=== PATIENT | female | born 1935 | race Caucasian/White ===

== ENCOUNTER 2023-10-19 13:18 | Emergency (ER) | payer MEDICARE, BC ==
[~2023-10-19] VITALS: Ht 152.4 cm; Wt 49.9 kg
[2023-10-19] MEDS ORDERED: ONDANSETRON HCL/PF 4 MG/2 ML VIAL IVP ONE (13:30)
[2023-10-19] MEDS ORDERED: MORPHINE SULFATE INJ 2 MG/ML DISP.SYRIN IV ONE (13:30)
[2023-10-19 13:49] LABS: BASOPHILS # (AUTO) 0.1 K/uL (0.0-0.2); BASOPHILS % (AUTO) 0.6 % (0.0-2.0); EOSINOPHILS % (AUTO) 0.2 % (0.0-6.0); HEMATOCRIT 33 % (33-45); HEMOGLOBIN 10.6 g/dL (11.5-14.8); LYMPHOCYTES # (AUTO) 0.4 K/uL (0.8-4.8); LYMPHOCYTES % (AUTO) 3.6 % (20.0-44.0); MEAN CORPUSCULAR HEMOGLOBIN 33 PG (26.0-33.0); MEAN CORPUSCULAR HGB CONC 33 g/dl (31.0-36.0); MEAN CORPUSCULAR VOLUME 101 fL (82-100); MONOCYTES # (AUTO) 0.7 K/uL (0.1-1.30); MONOCYTES % (AUTO) 6.2 % (2.0-12.0); NEUTROPHILS # (AUTO) 9.5 K/uL (1.8-8.9); NEUTROPHILS % (AUTO) 89.4 % (43.0-81.0); PLATELET COUNT (AUTO) 386 K/uL (150-450); RED BLOOD CELL COUNT(AUTO) 3.23 MIL/uL (4.0-5.2); RED CELL DISTRIBUTION WIDTH 14.8 % (11.5-15.0); WHITE BLOOD COUNT (AUTO) 10.6 K/uL (4.3-11.0)
[2023-10-19 14:04] LABS: ALANINE AMINOTRANSFERASE 25 U/L (12-78); ALBUMIN 3.1 g/dL (3.4-5.0); ALKALINE PHOSPHATASE 86 U/L (46-116); ASPARTATE AMINOTRANSFERASE 40 U/L (15-37); BILIRUBIN,DIRECT 0.2 mg/dL (0.0-0.2); BILIRUBIN,TOTAL 0.6 mg/dL (0.2-1.0); CALCIUM, SERUM 8.7 mg/dL (8.5-10.1); CARBON DIOXIDE 21 mmol/L (21-32); CHLORIDE 102 mmol/L (98-107); CREATININE 1.9 mg/dL (0.6-1.3); GLUCOSE 96 mg/dL (74-106); LIPASE 40 U/L (16-77); POTASSIUM 4.4 mmol/L (3.5-5.1); SODIUM SERUM 136 mmol/L (136-145); TOTAL PROTEIN, SERUM 6.5 g/dL (6.4-8.2); UREA NITROGEN, BLOOD 38 mg/dL (7-18)
[2023-10-19 14:06] LABS: INR 0.97 (0.91-1.10); PARTIAL THROMBOPLASTIN TIME 28.6 SEC (24.3-34.3); PROTHROMBIN TIME 10.3 SECS (9.2-11.1)
[2023-10-19] MEDS ORDERED: TRAM50TA2 PO ×2 (14:08)
[2023-10-19] MEDS ORDERED: PRED2.5T PO (14:08)
[2023-10-19] MEDS ORDERED: DULO60CA45 PO (14:08)
[2023-10-19] MEDS ORDERED: ESTR0.623 PO (14:08)
[2023-10-19] MEDS ORDERED: ASCO-495 PO (14:08)
[2023-10-19] MEDS ORDERED: ALEN70TA3 PO (14:08)
[2023-10-19] MEDS ORDERED: SIMV-46 PO (14:08)
[2023-10-19] MEDS ORDERED: LEFL20TA PO (14:08)
[2023-10-19] MEDS ORDERED: LACT10SO3 PO (14:08)
[2023-10-19] MEDS ORDERED: LIDO30AD10 TP (14:08)
[2023-10-19] MEDS ORDERED: MIRT-90 PO (14:08)
[2023-10-19] MEDS ORDERED: FURO-144 PO (14:08)
[2023-10-19] MEDS ORDERED: LISI40TA13 PO (14:08)
[2023-10-19] MEDS ORDERED: SULF500T PO (14:08)
[2023-10-19] MEDS ORDERED: IPRA42SP (14:08)
[2023-10-19] MEDS ORDERED: PANT40TA2 PO (14:08)
[2023-10-19] MEDS ORDERED: ACET-2605 PO (14:08)
[2023-10-19] MEDS ORDERED: ONDANSETRON HCL/PF 4 MG/2 ML VIAL ONE (14:54)
[2023-10-19] MEDS ORDERED: MORPHINE SULFATE INJ 2 MG/ML DISP.SYRIN ONE (14:54)
[2023-10-19] MEDS ORDERED: ACETAMINOPHEN ES 500 MG TABLET ONE (15:33)
[2023-10-19] MEDS ORDERED: PIPERACILLIN /TAZOBACTAM 3.375 G in IV D5W 50 ML IV ONE (16:00)
[2023-10-19] MEDS ORDERED: ACETAMINOPHEN ES 500 MG TABLET PO ONE (16:00)
[2023-10-19] MEDS ORDERED: PIPERACI/TAZO 3.375GM/D5W 50ML PB IV ONE (16:01)
[2023-10-19] MEDS ORDERED: ACETAMINOPHEN 325 MG TABLET PO PRN (16:30)
[2023-10-19] MEDS ORDERED: Z GUARD REMEDY 4 OZ OINT TP PRN (16:30)
[2023-10-19] MEDS ORDERED: ALENDRONATE 70 MG TABLET PO SCH (16:30)
[2023-10-19] MEDS ORDERED: MAGNESIUM HYDROXIDE 30 ML UDC PO PRN (16:30)
[2023-10-19] MEDS ORDERED: ESTROGENS,CONJUGATED 0.625 MG TABLET PO SCH (16:30)
[2023-10-19] MEDS ORDERED: IV NS 0.9% 1,000 ML IV PRN (16:30)
[2023-10-19] MEDS ORDERED: ZOLPIDEM TARTRATE 5 MG TABLET PO PRN (16:30)
[2023-10-19] MEDS ORDERED: MORPHINE SULFATE INJ 2 MG/ML DISP.SYRIN IV PRN (16:30)
[2023-10-19] MEDS ORDERED: MAG HYDROX/AL HYDROX/SIMETH 30 ML UDC PO PRN (16:30)
[2023-10-19] MEDS ORDERED: ONDANSETRON HCL/PF 4 MG/2 ML VIAL IVP PRN (16:30)
[2023-10-19] MEDS ORDERED: SULF1TAB48 PO (16:55)
[2023-10-19] MEDS ORDERED: LACTULOSE 10 G/15 ML UDC (PYXIS) PO SCH (17:00)
[2023-10-19] MEDS ORDERED: SULFASALAZINE 500 MG TABLET PO SCH (17:00)
[2023-10-19] MEDS ORDERED: TRAMADOL HCL 50 MG TABLET PO SCH (17:00)
[2023-10-19] MEDS ORDERED: MIRTAZAPINE 15 MG TABLET PO SCH (18:00)
[2023-10-19] MEDS ORDERED: PANTOPRAZOLE 40 MG TABLET.DR PO SCH (18:00)
[2023-10-19] MEDS ORDERED: PIPERACILLIN /TAZOBACTAM 3.375 G in IV D5W 50 ML IV SCH (18:00)
[2023-10-19] MEDS ORDERED: SIMVASTATIN 20 MG TABLET PO SCH (18:00)
[2023-10-19 18:18] VITALS: BP 123/68; TEMP 98; O2SAT 97
[2023-10-20] MEDS ORDERED: ASCORBIC ACID 250 MG TABLET PO SCH (09:00)
[2023-10-20] MEDS ORDERED: predniSONE 5 MG TABLET PO SCH (09:00)
[2023-10-20] MEDS ORDERED: LIDOCAINE 5% (PATCH) 1 EA PATCH TP SCH (09:00)
[2023-10-20] MEDS ORDERED: ACETAMINOPHEN ES 500 MG TABLET PO SCH (09:00)
[2023-10-20] MEDS ORDERED: LEFLUNOMIDE 20 MG TABLET PO SCH (09:00)
[2023-10-20] MEDS ORDERED: IPRATROPIUM BROMIDE 0.06% 15 ML NASPR NS SCH (09:00)
[2023-10-20] MEDS ORDERED: DULOXETINE HCL 30 MG CAPSULE.DR PO SCH (09:00)
[2023-10-20] MEDS ORDERED: PANTOPRAZOLE 40 MG VIAL IV SCH (09:00)
[2023-10-20] MEDS ORDERED: LISINOPRIL (20MG) 20 MG TABLET PO SCH (09:00)
== END 2023-10-19 18:19 ==
LOC: ER 13:20
DX: L02.214 Cutaneous abscess of groin (principal); K52.9 Noninfective gastroenteritis and colitis, unspecified; I10 Essential (primary) hypertension; E78.5 Hyperlipidemia, unspecified; Z79.899 Other long term (current) drug therapy; Z88.1 Allergy status to other antibiotic agents
CPT/HCPCS: 99285; 74176; 96365; 93005; 76882; 85025; 80048; 87040 ×2; 83690; 80076; 36415; 84484; 85730; J2543; J2270; J2405